=== PATIENT | female | born 1970 | race Caucasian/White ===

== ENCOUNTER → 2019-02-20 | Outpatient (CLI) | payer SELFPAY ==
[2019-02-20 12:29] LABS: Absolute Neutrophil Count 4.7 X10^3/uL (2.0-7.7); Basophil# 0.05 X10^3/uL; Basophil% 0.7 % (0-1); Eosinophil# 0.15 X10^3/uL; Hematocrit 41.4 % (37-47); Hemoglobin 13.5 g/dL (12.0-15.0); Lymphocyte % 25.3 % (19-41); Mean Corp Hgb Conc 32.6 g/dL (32-36); Mean Corpuscular Hgb 27.9 pg (27.0-32.0); Mean Corpuscular Volume 85.5 fL (81-99); Monocyte# 0.63 X10^3/uL; Monocyte% 8.4 % (0-10); NRBC Flagged by Analyzer 0 % (0-5); Neutrophil # 4.74 X10^3/uL (2.7-7.7); Neutrophil % 63.2 % (47-70); Platelet Count 313 K/mm3 (150-450); RBC Distribution Width CV 13.9 % (11.6-14.6); Red Blood Count 4.84 M/mm3 (4.2-5.4); White Blood Count 7.5 K/mm3 (4.4-11.0)
[2019-02-20 13:02] LABS: Hemoglobin A1c 8.3 % (4.2-6.3)
[2019-02-20 13:08] LABS: ALB/GLOB Ratio 0.8 RATIO (0.9-2.4); AST(SGOT) 24 U/L (15-37); Alanine Aminotransfer ALT/SGPT 47 U/L (13-56); Albumin, Serum 3.3 g/dL (3.2-5.0); Alkaline Phosphatase 60 U/L (45-117); Anion Gap 9 (5-15); BUN 6 mg/dL (7-18); BUN/Creat Ratio 8.1 RATIO (10-20); Calcium,Total 8.7 mg/dL (8.5-10.1); Chloride 101 mmol/L (98-107); Cholesterol 178 mg/dL (200); Creatinine, Serum 0.74 mg/dL (0.55-1.02); EST Glomerular Filtration Rate 90 mL/min (>60); Est Glom Filt Rate - Afr Amer 108 mL/min (>60); Globulin 3.9 g/dL (2.2-4.2); Glucose 213 mg/dL (74-106); High Density Lipoprotein 36 mg/dL; Protein, Total 7.2 g/dL (6.4-8.2); Sodium Level 136 mmol/L (136-145); Triglycerides 366 mg/dL; Very Low Density Lipoprotein 73 mg/dL (5-40)
== END | disposition home or self-care (01) ==
LOC: BFHLAB 09:01
PROVIDERS: Family Provider Family Medicine; PCP Family Medicine; Visit Provider Family Medicine
DX: I10 Essential (primary) hypertension (principal); E11.40 Type 2 diabetes mellitus with diabetic neuropathy, unspecified
CPT/HCPCS: 36415; 80053; 80061; 83036; 85025

== ENCOUNTER → 2019-02-27 | Outpatient (CLI) | payer SELFPAY ==
--- NOTE | 2019-02-27 07:05 | CT_ITS ---
STUDY: CT ABDOMEN AND PELVIS WITH CONTRAST REASON FOR EXAM: Female, 48 years old. Right lower quadrant pain RADIATION DOSAGE (If Supplied By Facility): CTDIvol = ( 13.75 ) mGy, DLP = ( 1510.45 ) mGycm TECHNIQUE: Transaxial images were obtained from the dome of the diaphragm to the symphysis pubis without oral contrast. 100mL ml of Isovue 300 contrast was administered. Sagittal and coronal images were reconstructed. Individualized dose optimization techniques were used for this CT. COMPARISON: 12/14/2016 FINDINGS: Body wall soft tissues: No acute process. Osseous structures: Degenerative disease L5-S1 with facet hypertrophy contributes to mild foraminal narrowing. Inferior chest: No acute process. Hepatobiliary: Hepatic steatosis with hepatomegaly, craniocaudal right liver 19.5 cm. Normal gallbladder and biliary tree. Pancreas: No acute process. Spleen: Normal. Adrenal glands: Normal. Urogenital: Normal kidneys, collecting systems, ureters, urinary bladder. Uterus absent. Multiple left ovary. Unremarkable right ovary. Pelvic floor and sidewalls and retroperitoneum: No mass or adenopathy. Vasculature: No acute process. Stomach: No acute process. Small bowel and mesentery: No acute process. Large bowel: Appendicolith. Appendix is not inflamed. Unremarkable large bowel and rectum. Free fluid or free air: None. CT/Abdomen/Pelvis WITH Contrast IMPRESSION: No acute abdominopelvic process is evident. Appendicolith without appendiceal inflammation. Electronically Signed: Jay Rivera MD at 9:47 EDT Tel , Service support ,
== END | disposition home or self-care (01) ==
PROVIDERS: Family Provider Family Medicine; PCP Family Medicine; Referring Provider Family Medicine; Visit Provider Family Medicine
DX: R10.9 Unspecified abdominal pain (principal)
CPT/HCPCS: 74177; Q9967

== ENCOUNTER → 2023-02-22 | Outpatient (CLI) | payer OTHER, SELFPAY ==
--- NOTE | 2023-02-22 17:05 | MRI_ITS ---
EXAM: MR ABDOMEN WITHOUT AND WITH INTRAVENOUS CONTRAST CLINICAL INDICATION: abdominal mass, RT INFRAUMBILICAL RECTUC MUSCLE NODULE, AREA OF PAIN MARKED W/ OIL BEADS TECHNIQUE: Multiplanar and multisequence MR images of the abdomen without and with intravenous contrast. Area of interest marked with oil bead. Magnetic field strength 1.5 T. CONTRAST: 27 cc of Clariscan IV. COMPARISON: CT scan of the abdomen and pelvis 02/27/2019. FINDINGS: LOWER THORAX: Unremarkable. No pleural effusion. LIVER: Limited visualization of the liver, visualized portions normal. GALLBLADDER AND BILE DUCTS: Limited visualization of the gallbladder, visualized portions normal. No gallstones. No gallbladder distention or wall edema. No intra- or extrahepatic biliary ductal dilation. PANCREAS: Limited visualization of the pancreas, visualized portions normal. No focal cystic or solid mass. SPLEEN: Limited visualization of the spleen, visualized portions normal. ADRENALS: Unremarkable. No nodules. KIDNEYS AND URETERS: Unremarkable. Normal renal size and position. No hydronephrosis. INTRAPERITONEAL SPACE: Unremarkable. No ascites or other fluid collection. No free air. SOFT TISSUES: Small fat-containing paraumbilical hernia. VASCULATURE: Unremarkable. Abdominal aorta is non-dilated. LYMPH NODES: No enlarged lymph nodes. OTHER FINDINGS: Hysterectomy. MRI/MRI Abd WITH and W/O Contrast IMPRESSION: 1. No significant abdominal abnormality identified. 2. Hysterectomy. 3. Small fat-containing paraumbilical hernia. No bowel involvement. Electronically Signed: Lew Foster MD at 6:11 EDT ,
[2023-02-22 17:40] LABS: CREATININE FINGERSTICK 0.9 mg/dL (0.55-1.02); EGFR FINGERSTICK > 60.0000 mL/min (>60)
== END | disposition home or self-care (01) ==
PROVIDERS: PCP Family Medicine; Referring Provider Surgery; Visit Provider Surgery
DX: R19.00 Intra-abdominal and pelvic swelling, mass and lump, unspecified site (principal)
CPT/HCPCS: 74183; A9575

== ENCOUNTER 2023-03-12 09:57 | Day surgery (SDC) | payer OTHER, SELFPAY ==
[2023-03-12] VITALS (7 sets, daily range): BP systolic 110–156; BP diastolic 60–91; PULSE 71–78; RESP 16; TEMP 36.3–36.6; O2SAT 94–98; BMI 46.6
--- NOTE | 2023-03-12 | GASB_PTH ---
PATIENT: ERIK SMITH LOC: EN U#:[id number] AGE/SX: 52/F ROOM: RE03/12/[address]: Dr. Lew Abrams MD : 1970 BED: DIS: 03/12/2023 SPEC #: [id number] RECD: 03/12/23 17:10 STATUS: PINKY SHIMA #: [id number] TESFAYE: 03/12/23 00:[address]: Lew Abrmas DEPT: SURGICAL PATHOLOGY RECD BY: Angel Matthews ENTERED: 03/16/23 09:52 SP TYPE: Gastric Bx OTHR DR: Dr. Crow Frazier DO Tissues: A - Duodenum, NOS B - Gastric mucous membrane C - Sigmoid colon biopsy Procedures: Surgery Specimen Level IV HEADER OPERATION: Colonoscopy, EGD, biopsy PRE-OP DIAGNOSIS: Abdominal pain, subcutaneous nodule of abdominal wall, diarrhea, heartburn TISSUE SUBMITTED: A - Duodenal bulb biopsy, B - Antrum biopsy for H. pylori and path, C - Distal sigmoid polyp MICROSCOPIC DIAGNOSIS A. Duodenal bulb, biopsy: Fragments of duodenal mucosa, no pathologic diagnosis. B. Antrum, biopsy: Mild gastritis. See microscopic description and comment. C. Distal sigmoid polyp, biopsy: Consistent with submucosal leiomyoma. See comment. SJ:rg 03/17/2023 COMMENT B. The results of immunohistochemistry for Helicobacter pylori will be reported separately ([id number]). C. Immunohistochemistry ([id number]) supports the above diagnosis. The lesion is present at the deep resection margin of both pieces. Correlation with clinical, endoscopic findings and appropriate follow-up are necessary. Case has been reviewed in consultation with Dr. Wong who concurs with the above diagnosis. IDC:AM MICROSCOPIC DESCRIPTION Slides are reviewed. B. The specimen shows fragments of gastric mucosa with chronic inflammatory cell infiltrates in the lamina propria consisting of lymphocytes and plasma cells, consistent with mild chronic gastritis. GROSS DESCRIPTION A - Received in fixative is one container labeled with the patient's name and designated duodenal bulb biopsy. The specimen consists of multiple irregular fragments of light krueger soft tissue that in aggregate measure 0.6 x 0.3 x 0.1 cm. The specimen is totally submitted in one cassette. B - Received in fixative is one container labeled with the patient's name and designated antrum biopsy. The specimen consists of two irregular fragments of light krueger soft tissue that in aggregate measure 0.3 x 0.3 x 0.1 cm. The specimen is totally submitted in one cassette. C - Received in fixative is one container labeled with the patient's name and designated distal sigmoid polyp. The specimen consists of two krueger-pink polyps measuring 1.2 x 1.2 x 1.0 cm and 1.0 x 0.8 x 0.8 cm. The base of the polyps is inked. Sections of both polyps reveal krueger white solid cut surfaces. Also present in the container are multiple small fragments of krueger soft tissue measuring 0.5 x 0.2 x 0.1 cm. The entire specimen is submitted in two cassettes. / SJ:rg 03/16/2023 TC:1 CPT: 78518 x3
--- NOTE | 2023-03-12 10:30 | IMM_PTH ---
PATIENT: ERIK SMITH LOC: EN U#:[id number] AGE/SX: 52/F ROOM: RE03/12/[address]: Dr. Lew Abrams MD : 1970 BED: DIS: 03/12/2023 SPEC #: [id number] RECD: 03/16/23 12:25 STATUS: PINKY REQ #: [id number] TESFAYE: 03/12/23 10:[address]: Lew Abrams DEPT: IMMUNOHISTOCHEMISTRY RECD BY: Clau Alexandra ENTERED: 03/16/23 12:26 SP TYPE: IMMUNO OTHR DR: Dr. Crow Frazier DO Tissues: B - Stomach, NOS C - Sigmoid colon biopsy Procedures: H Pylori (initial) SMA (add) CD31 (add) CD34 (add) DESMIN (add) KI-67 (add) P53 (add) Vimentin (add) FACTOR VIII (add) Pankeratin (initial) S-100 (add) [facility]YSIC[facility]STIT[facility] [address] [address] SPECIMEN INFORMATION: Tissue Source: B - Antrum, C - Distal sigmoid polyp Clinical Info: Abdominal delarosa, subcutaneous nodule of abdominal wall, diarrhea, heartburn, hiatal hernia Specimen Number: [id number] B & C CPT code: 87255 x2, 07352 x9 METHODOLOGY: Deparaffinized sections of prefer/formalin-fixed tissue or PAP/DQ stained slides are incubated with monoclonal/polyclonal antibodies/oligonucleotide probes. Localization is made via biotin free immunoperoxidase method. Appropriate controls are performed and reacted as expected. Results on target cell population are indicated in the following table: RESULTS: ANTIBODY / CLONE RESULT Block B H Pylori (polyclonal) negative Block C AE1-3 (AE1/AE3/PCK26) negative Vimentin (V9) positive CD31 (JOELLE/70A) negative Factor VIII (R Ag) negative CD34 (QBEnd-10) negative Actin (1A4) positive Desmin (CE-R-11) positive S-100 (4C4.9) negative P53 (DO-7) negative (null pattern) Ki-67 (30-9) positive, low, <1% These tests were developed and their performance characteristics determined by [facility]. They may not have been cleared or approved by the U.S. Food and Drug Administration. The FDA has determined that such clearance or approval is not necessary. The above immunohistochemical/dualISH markers are ordered and reviewed by the Pathologist. INTERPRETATION: B. Antrum, biopsy: Negative for Helicobacter pylori organisms. C. Distal sigmoid polyp, biopsy: Consistent with submucosal leiomyoma. SJ:cristina 03/18/2023
[2023-03-12] MEDS: Lactated Ringers 1,000 ML 15 ML IV (10:53)
[2023-03-12 11:14] LABS: Bedside Glucose 191 mg/dL (74-106)
--- NOTE | 2023-03-12 11:54 | HP.PCM_ITS ---
History and Physical Date of Admission: 03/12/23 Date of Service: 02/05/23 MR#: [id number] Acct: [id number] Name: ERIK LANGE Rep #: [id number] : 1970 Provider: Dr. Lew Abrams MD Age/Sex: 52/F Location: [facility] Status: Signed Intake Vital Signs 02/05/2309:51 Height 5 ft 5.5 in Weight: 297 lb BMI 48.6 BP 126/87 H Blood Pressure Location Rt brachial Position Sitting Respiration 17 Pulse 97 Pulse Source NIBP Temp 97.2 F L Temp Source Temporal Pulse Oximetry (%) 96 Oxygen Delivery Method room air Intake Visit Reasons: 2nd opinion abdominal pain Chief Complaint: right mid abd pain Stack Attendant Required: No Is patient in pain?: Yes Allergies No Known Allergies Allergy (Verified 02/05/23 09:52) Medications citalopram 20 mg tablet PO #90 tabs 04/07/19 [History Confirmed 02/05/23] lisinopril 10 mg-hydrochlorothiazide 12.5 mg tablet PO #90 tabs 04/07/19 [History Confirmed 02/05/23] multivitamin 1 tab PO DAILY 04/07/19 [History Confirmed 02/05/23] metformin 500 mg tablet,extended release 24 hr 500 mg PO .qid #360 tabs 02/05/23 [History Confirmed 02/05/23] Is last menstrual period known: No Post menopausal: Yes Patient : No PFSH Medical History (Updated 02/05/23 @ 15:[address] Lew Abrams MD) Abdominal pain Anxiety and depression Diabetes HTN (hypertension) Surgical History (Updated 04/07/19 @ 09:07 by Verena Iverson) History of abdominal hysterectomy History of section History of tonsillectomy Family History (Updated 04/07/19 @ 09:07 by Verena Iverson) Mother Heart disease Social History (Updated 04/13/19 @ 14:[address] Guido Bueno MD) Smoking Status: Never smoker HPI HPI HPI: Patient is a 52-year-old female who presents for second opinion due to complaints of abdominal pain which she states began around 2008 shortly after a partial vaginal hysterectomy by Dr. Pinedo. Symptoms include: A pulling and burning sensation when she moves about she declares that there is no relief with ngbi-rtp-cwjdezm analgesics such as Tylenol or ibuprofen. She also declares there is no relief when she tries to change positions from sitting to standing or sitting to lying down. She describes this sensation as beginning on or about the level of her pubic bone and moving upward to the right of her bellybutton. She was seen in [address] Bueno for this issue and he described a possible granuloma in the right rectus muscle, but informed Mrs. Lange that any intervention would be associated with more morbidity than the relief she could expect so if she was informed she may have to simply live with her discomfort. Beyond the above, patient comments that she has always had some periods of diarrhea and loose stools, but in the last 7 to 8 years has noticed much more frequently that she is experiencing liquid or runny stools. She also notes that when she feels the urge to defecate she must go immediately. She has never had a colonoscopy because she states she was never told she should have one. She has never noticed any bleeding or dark stools and reports the frequency of her stools occur sometimes 4-7 times in a day. She has no regular use of ibuprofen. She does not regularly use fiber supplements. She has no prior history of smoking. Patient confirms a history of both reflux and heartburn, but states that heartburn is her primary issue. She notes triggers being things like peanut butter, chocolate, drinking lots of caffeine (she states that she previously as a younger adult could drink 1-2 pops without issue, but finds this difficult after a couple of cups). These heartburn symptoms occur at a frequency of up to 2 times per week. She notes that she was told as a young lady that she has a hiatal hernia, but no intervention was ever undertaken?including EGD to further evaluate. She is not routinely on PPI medication, but states that she will take Tums or Pepcid as needed with her episodes of heartburn. She reports that her weight has been up and down most of her life. She states that she can lose some weight with great discipline, but then find herself becoming depressed and regaining the weight due to indiscriminate eating. She states that her current weight of 297 pounds is actually down from her recent high of 320 pounds. Patient is a diabetic and uses metformin to control her blood sugars. She states that her A1c typically ranges 6-8. She is diagnosed with hypertension, but does not routinely check her blood pressures. Pertinent surgical history includes: [History] ROS General General: Yes weight change; No appetite, fatigue, colon cancer, breast cancer or weakness HEENT HEENT: No difficulty swallowing, eye injury, eye surgery, swollen glands or hoarseness Endo Endocrine: Yes diabetes mellitus; No thyroid disease, thyroid cancer, Hair loss, heat intolerance or cold intolerance Breast Breast: No left breast lump, right breast lump, nipple discharge, breast pain, abnormal mammogram, abnormal US or breast enlargement Musc Musculoskeletal: No back problems, arthritis, rheumatoid arthritis, gout or joint pain Cardio Cardiovascular: Yes high blood pressure; No murmur, pacemaker, heart disease, atrial fibrillation, heart attack, heart stent, palpitations, shortness of breat with exertion or chest pain Psych Psychiatric: Yes depression and anxiety; No hearing voices Resp Respiratory: Yes shortness of breath, No sleep apnea, No cough, No COPD, No asthma, No emphysema and No wheezing Gastro Gastrointestinal: Yes abdominal pain, No nausea or vomiting, No diarrhea, No constipation, No blood in stool, No acid reflux, No hemorrhoids, No ulcers, Yes gallbladder problem and No black,tarry stools Jani Hematologic: No blood thinners, No blood disorders, No bleeding, No anemia and No blood clots Neuro Neurologic: No weakness Exam Const General: cooperative, comfortable and no acute distress Nutritional Appearance: obese morbidly obese Orientation: alert, awake and oriented x3 GI Other: Gynecoid shape with significant obesity. No scars are present but there are striae. Patient's abdomen is examined and she is found to be nondistended and soft with palpation. She describes some mild tenderness about her umbilicus to the right and inferiorly. Given her habitus I am unable to palpate to the level of her fascia. Assessment and Plan Assessment and Plan (1) Abdominal pain: Status: Chronic Comment: Patient describes a 14-year history of abdominal discomfort beginning 6 to 8 months after partial hysterectomy in 2008. By her description this is a musculoskeletal etiology given that it is most prominently felt through the abdominal wall and provoked by activity. An exam is limited given patient's habitus, but she does have discomfort at the level of the umbilicus and just below to the right of this area. In my independent review of patient's CT imaging from 2019 identify a 1.5 to 1.7 cm umbilical hernia defect and just inferior laterally to this defect on the right there is a distortion of the rectus muscle that appears to contain some calcifications. Given that the patient's imaging is now 4 years out of date and her exam limited, I favor repeating her imaging. I have conferenced with radiology and we will plan to perform an MR study this time to get better definition of the soft tissue. Patient requires further evaluation of her GI symptoms as well. See below (2) Subcutaneous nodule of abdominal wall: Status: Acute Comment: Patient with right infraumbilical rectus muscle nodule. There appears to be calcifications. Imaging reviewed with radiology and they agree further imaging with an MR study may be more conclusive. I have shared with Mrs. Lange that any attempts at excision of this mass would put her at significant risk for additional hernia recurrence and that her habitus certainly limits the intervention that can be considered electively. Plan: MRI of the abdomen with contrast (3) Diarrhea: Status: Acute Comment: Patient with frequent episodes of diarrhea for the past several years. No prior colonoscopy despite age greater than 50. With her reports of abdominal discomfort and the symptoms, I would like to be sure that they are not in any way connected. I would also like to evaluate her for possible microscopic colitis or other malabsorption. As far as the malabsorption testing goes, patient did report some yellow stools so I would like to submit a stool sample for fecal fat testing. Otherwise she was made aware of the expectations for a colonoscopy and informed that she should complete a split prep and plan to have a dedicated intermodal truck driver the day of the procedure. Plan: ? Plan will be to complete colonoscopy on first mutually agreeable date under local MAC. Pre-procedure prep discussed and paper instructions provided. Patient is also made aware that she will need to have a dedicated intermodal truck driver with her the day of the procedure. ? Fecal fat testing (4) Heartburn symptom: Status: Acute Comment: Patient describes heartburn symptoms 2 times per week and reports a history of a hiatal hernia. Given that diagnostic colonoscopy is planned for frequent diarrhea, I would like to do a concurrent EGD study to better evaluate her hiatal hernia. Ultimately, given her current BMI I did discuss with her a possible bariatrics referral. Mrs. Lange was rather receptive to this suggestion and I have asked her to specifically consider evaluation for possible gastric bypass as I would see her as a poor operative candidate for antireflux surgery through fundoplication. Plan: Diagnostic EGD concurrent with colonoscopy (5) Hiatal hernia: Status: Acute Plan: Evaluate with diagnostic EGD as discussed under heartburn above I have examined the patient and the H&P has been reviewed. There are no clinical changes since date of exam. I reviewed with patient that her MRI was unfortunately nondiagnostic for the abdominal wall lesion we were interested in. I informed her to that radiology is recommending repeat CT imaging. We will follow-up on this issue independently. Patient confirms that she did complete her prep for today's procedure and that her output is now clear. Neither she nor her have any questions related today's procedure. Therefore we proceeded endoscopy suite for planned upper and lower endoscopy as discussed above.
--- NOTE | 2023-03-12 13:11 | OP.EGD_ITS ---
Patient Name: Carlos Lange Procedure Date: 03/12/2023 11:48 AM Date of : 1970 Age: 52 Procedure: Upper GI endoscopy Indications: Gastro-esophageal reflux disease Providers: Lew Abrams MD Referring MD: Crow Frazier Medicines: See the Anesthesia note for documentation of the administered medications Patient Profile: Refer to note in patient chart for documentation of history and physical. Complications: No immediate complications. Estimated blood loss: Minimal. Procedure: Pre-Anesthesia Assessment: - The heart rate, respiratory rate, oxygen saturations, blood pressure, adequacy of pulmonary ventilation, and response to care were monitored throughout the procedure. After obtaining informed consent, the endoscope was passed under direct vision. Throughout the procedure, the patient's blood pressure, pulse, and oxygen saturations were monitored continuously. The gastroscope was introduced through the mouth, and advanced to the second part of duodenum. The upper GI endoscopy was accomplished without difficulty. The patient tolerated the procedure well. Scope In: 12:06:56 PM Scope Out: 12:16:29 PM Total Procedure Duration Time 0 hours 9 minutes 33 seconds Findings: No gross lesions were noted in the second portion of the duodenum. No biopsies or other specimens were collected for this exam. A few 2 mm semi-sessile polyps with no bleeding were found in the duodenal bulb. Biopsies were taken with a cold forceps for histology. Estimated blood loss was minimal. Localized moderately erythematous mucosa without bleeding was found in the gastric antrum. Biopsies were taken with a cold forceps for Helicobacter pylori testing. Estimated blood loss was minimal. The Z-line was regular and was found 39 cm from the incisors. No biopsies or other specimens were collected for this exam. The exam was otherwise without abnormality. Impression: - No gross lesions in the second portion of the duodenum. No specimens collected. - A few duodenal polyps. Biopsied. - Erythematous mucosa in the antrum. Biopsied. - Z-line regular, 39 cm from the incisors. No specimens collected. - The examination was otherwise normal. Recommendation: - Discharge patient to home (via wheelchair). - Resume previous diet today. - Use Protonix (pantoprazole) 40 mg PO daily today. - Await pathology results. - Telephone my office for pathology results in 1 week. - Continue present medications. Procedure Code(s): --- Professional --- 89338, Esophagogastroduodenoscopy, flexible, transoral; with biopsy, single or multiple Diagnosis Code(s): --- Professional --- K31.7, Polyp of stomach and duodenum K31.89, Other diseases of stomach and duodenum K21.9, Gastro-esophageal reflux disease without esophagitis CPT copyright 2021 [employer]. All rights reserved. The codes documented in this report are preliminary and upon export clerk review may be revised to meet current compliance requirements. Lew Abrams MD 03/12/2023 1:11:18 PM This report has been signed electronically. Number of Addenda: 0 Note Initiated On: 03/12/2023 11:48 AM
--- NOTE | 2023-03-12 13:12 | OP.CCLET_ITS ---
03/12/2023 Crow Frazier [address] [place] [address] Re : Upper GI endoscopy procedure for Carlos Lange Dear Dr. Frazier This procedure was performed on Sunday, March 12, 2023. My impressions and recommendations are as follows: Impressions : - No gross lesions in the second portion of the duodenum. No specimens collected. - A few duodenal polyps. Biopsied. - Erythematous mucosa in the antrum. Biopsied. - Z-line regular, 39 cm from the incisors. No specimens collected. - The examination was otherwise normal. Recommendations : - Discharge patient to home (via wheelchair). - Resume previous diet today. - Use Protonix (pantoprazole) 40 mg PO daily today. - Await pathology results. - Telephone my office for pathology results in 1 week. - Continue present medications. My findings are described in the full procedure note, which is enclosed. If I can be of further assistance, please feel free to contact me at Doctor phone number(s): , Work: . Sincerely, Lew Abrams MD 03/12/2023 1:11:18 PM This report has been signed electronically.
--- NOTE | 2023-03-12 13:17 | OP.COLON_ITS ---
Patient Name: Carlos Lange Procedure Date: 03/12/2023 12:22 PM Date of : 1970 Age: 52 Procedure: Colonoscopy Indications: This is the patient's first colonoscopy, Chronic diarrhea Providers: Lew Abrams MD Referring MD: Crow Frazier Medicines: See the Anesthesia note for documentation of the administered medications Patient Profile: Refer to note in patient chart for documentation of history and physical. Last Colonoscopy: none. The patient's first colonoscopy is today. Complications: No immediate complications. Estimated blood loss: Minimal. Procedure: Pre-Anesthesia Assessment: - The heart rate, respiratory rate, oxygen saturations, blood pressure, adequacy of pulmonary ventilation, and response to care were monitored throughout the procedure. - The heart rate, respiratory rate, oxygen saturations, blood pressure, adequacy of pulmonary ventilation, and response to care were monitored throughout the procedure. After I obtained informed consent, the scope was passed under direct vision. Throughout the procedure, the patient's blood pressure, pulse, and oxygen saturations were monitored continuously. The colonoscope was introduced through the anus and advanced to the cecum, identified by the ileocecal valve. The colonoscopy was somewhat difficult due to a tortuous colon. Successful completion of the procedure was aided by changing the patient to a supine position. The patient tolerated the procedure well. The quality of the bowel preparation was adequate to identify polyps. Scope In: 12:22:47 PM Scope Withdrawal Time 0 hours 26 minutes 34 seconds Scope Out: 1:04:10 PM Total Procedure Duration Time 0 hours 41 minutes 23 seconds Findings: A few small-mouthed diverticula were found in the sigmoid colon. No biopsies or other specimens were collected for this exam. A 25 mm polyp was found in the distal sigmoid colon. The polyp was pedunculated. The polyp was removed with a hot snare. Resection and retrieval were complete. Estimated blood loss: none. The exam was otherwise without abnormality on direct and retroflexion views. The mucosa vascular pattern in the rectum was locally increased. No biopsies or other specimens were collected for this exam. Impression: - Diverticulosis in the sigmoid colon. No specimens collected. - One 25 mm polyp in the distal sigmoid colon, removed with a hot snare. Resected and retrieved. - The examination was otherwise normal on direct and retroflexion views. - Increased mucosa vascular pattern in the rectum. No specimens collected. Recommendation: - Discharge patient to home (via wheelchair). - Resume previous diet today. - Continue present medications. - Await pathology results. - Repeat colonoscopy date to be determined after pending pathology results are reviewed for surveillance based on pathology results. - Telephone my office for pathology results in 1 week. Procedure Code(s): --- Professional --- 01406, Colonoscopy, flexible; with removal of tumor(s), polyp(s), or other lesion(s) by snare technique Diagnosis Code(s): --- Professional --- D12.5, Benign neoplasm of sigmoid colon K52.9, Noninfective gastroenteritis and colitis, unspecified K57.30, Diverticulosis of large intestine without perforation or abscess without bleeding CPT copyright 2021 [employer]. All rights reserved. The codes documented in this report are preliminary and upon medical records coder review may be revised to meet current compliance requirements. Lew Abrams MD 03/12/2023 1:17:13 PM This report has been signed electronically. Number of Addenda: 0 Note Initiated On: 03/12/2023 12:22 PM
--- NOTE | 2023-03-12 13:17 | OP.CCLET_ITS ---
03/12/2023 Crow Frazier [address] [place] [address] Re : Colonoscopy procedure for Carlos Lange Dear Dr. Frazier This procedure was performed on Sunday, March 12, 2023. My impressions and recommendations are as follows: Impressions : - Diverticulosis in the sigmoid colon. No specimens collected. - One 25 mm polyp in the distal sigmoid colon, removed with a hot snare. Resected and retrieved. - The examination was otherwise normal on direct and retroflexion views. - Increased mucosa vascular pattern in the rectum. No specimens collected. Recommendations : - Discharge patient to home (via wheelchair). - Resume previous diet today. - Continue present medications. - Await pathology results. - Repeat colonoscopy date to be determined after pending pathology results are reviewed for surveillance based on pathology results. - Telephone my office for pathology results in 1 week. My findings are described in the full procedure note, which is enclosed. If I can be of further assistance, please feel free to contact me at Doctor phone number(s): , Work: . Sincerely, Lew Abrams MD 03/12/2023 1:17:13 PM This report has been signed electronically.
[2023-03-15 18:07] LABS: Fats, Neutral Normal (.); Fats, Total Normal (.)
== END 2023-03-12 14:28 | disposition home or self-care (01) ==
LOC: EN 10:05 → AC 10:05
PROVIDERS: PCP Family Medicine; Referring Provider Family Medicine; Visit Provider Surgery
PROC: 0DJD8ZZ Inspection of Lower Intestinal Tract, Via Natural or Artificial Opening Endoscopic (ICD-10-PCS; CPT 45378; principal; 2023-03-12 10:25)
DX: K52.9 Noninfective gastroenteritis and colitis, unspecified (principal); E11.9 Type 2 diabetes mellitus without complications; Z87.891 Personal history of nicotine dependence; K42.9 Umbilical hernia without obstruction or gangrene; K57.30 Diverticulosis of large intestine without perforation or abscess without bleeding; K44.9 Diaphragmatic hernia without obstruction or gangrene; I10 Essential (primary) hypertension; F32.A Depression, unspecified; K31.7 Polyp of stomach and duodenum; Z79.84 Long term (current) use of oral hypoglycemic drugs; D12.5 Benign neoplasm of sigmoid colon; K31.89 Other diseases of stomach and duodenum; K21.9 Gastro-esophageal reflux disease without esophagitis
CPT/HCPCS: 45385; 43239; 82705; 82962; 88305; 88341; 88342; J7120; J2405

== ENCOUNTER → 2023-04-06 | Outpatient (CLI) | payer OTHER, SELFPAY ==
--- NOTE | 2023-04-06 07:37 | CT_ITS ---
STUDY: CT ABDOMEN AND PELVIS WITH CONTRAST REASON FOR EXAM: Female, 52 years old.ABDOMINAL WALL LESION MID ABD PAIN/PULLING, ? HERNIA YEARS AGO, HYSTER, , DB RADIATION DOSAGE (If Supplied By Facility): CTDIvol = ( 18.87 ) mGy, DLP = ( 1433.11 ) mGycm TECHNIQUE: Transaxial images were obtained from the dome of the diaphragm to the symphysis pubis without oral contrast. ml of 100mL Isovue-300 contrast was administered. Sagittal and coronal images were reconstructed. Individualized dose optimization techniques were used for this CT. COMPARISON: CT of abdomen and pelvis dated February 27, 2019 FINDINGS: The visualized lung bases are unremarkable. The visualized portions of the heart are within normal limits. There is decreased attenuation of the liver consistent with steatosis. The gallbladder is contracted. Normal spleen. Pancreas: Small simple cyst at the undersurface of the head of the pancreas redemonstrated and demonstrating slight interval enlargement, currently measuring 2.15 cm in diameter compared to 2.03 cm in diameter on February 27, 2019 study. No malignant process is favored. Normal remaining pancreatic parenchyma of the uncinate process, head, body, and tail. Normal bilateral adrenal glands. There is mild cortical atrophy of the right kidney, consistent with chronic medical renal disease. Several small cysts of the right kidney redemonstrated which does not requiring additional imaging. Normal left kidney. Normal visualized stomach. Normal small intestine. There are multiple colonic diverticula consistent with diverticulosis. The appendix is visualized and appears normal. Normal abdominal aorta. Normal inferior vena cava. Normal retroperitoneum. Normal urinary bladder. There is absence of the uterus consistent with a prior hysterectomy. Normal ovaries. There is a small umbilical hernia containing fat. Redemonstration of old fibrotic scarring and calcification in the inner aspect and middle one third region of the right rectus abdominis muscle with adjacent focal fatty atrophy, see image 86/135 series 2, consistent with sequela of prior surgical intervention to this region. No ventral hernia is present on the current study. There are diffuse degenerative changes of the visualized lumbar spine. CT/Abdomen/Pelvis WITH Contrast IMPRESSION: 1. Small simple cyst at the undersurface of the head of the pancreas redemonstrated and demonstrating slight interval enlargement, currently measuring 2.15 cm in diameter compared to 2.03 cm in diameter on February 27, 2019 study. No malignant process is favored. Normal remaining pancreatic parenchyma of the uncinate process, head, body, and tail. 2. There is a small umbilical hernia containing fat. Redemonstration of old fibrotic scarring and calcification in the inner aspect and middle one third region of the right rectus abdominis muscle with adjacent focal fatty atrophy, see image 86/135 series 2, consistent with sequela of prior surgical intervention to this region. No ventral hernia is present on the current study. Electronically Signed: Mandeep Morgan MD at 8:58 EDT ,
[2023-04-06 08:15] LABS: CREATININE FINGERSTICK < 0.9 mg/dL (0.55-1.02); EGFR FINGERSTICK > 60.0000 mL/min (>60)
== END | disposition home or self-care (01) ==
LOC: CT 07:36
PROVIDERS: PCP Family Medicine; Referring Provider Surgery; Visit Provider Surgery
DX: K44.9 Diaphragmatic hernia without obstruction or gangrene (principal)
CPT/HCPCS: 74177; Q9967

== ENCOUNTER 2023-04-28 10:21 | Day surgery (SDC) | payer OTHER, SELFPAY ==
[2023-04-28 10:51] VITALS: BP 134/66; PULSE 77; RESP 18; TEMP 36.3; O2SAT 97; BMI 47.3
[2023-04-28] MEDS: Lactated Ringers 1,000 ML 15 ML IV (10:55)
--- NOTE | 2023-04-28 11:14 | HP.PCM_ITS ---
[facility] - General General Date of Admission: 04/28/23 Date of Service: 04/28/23 Chief Complaint: Incompletely removed polyp HPI Narrative ERIK LANGE, is a 52 F who presents for repeat colonoscopy. 52-year-old female who presents for second opinion due to complaints of abdominal pain which she states began around 2008 shortly after a partial vaginal hysterectomy by Dr. Pinedo. Symptoms include: A pulling and burning sensation when she moves about she declares that there is no relief with mzka-qup-kzgljkw analgesics such as Tylenol or ibuprofen. She also declares there is no relief when she tries to change positions from sitting to standing or sitting to lying down. She describes this sensation as beginning on or about the level of her pubic bone and moving upward to the right of her bellybutton. She was seen in [address] Bueno for this issue and he described a possible granuloma in the right rectus muscle, but informed Mrs. Lange that any intervention would be associated with more morbidity than the relief she could expect so if she was informed she may have to simply live with her discomfort. Beyond the above, patient comments that she has always had some periods of diarrhea and loose stools, but in the last 7 to 8 years has noticed much more frequently that she is experiencing liquid or runny stools. She also notes that when she feels the urge to defecate she must go immediately. She has never had a colonoscopy because she states she was never told she should have one. She has never noticed any bleeding or dark stools and reports the frequency of her stools occur sometimes 4-7 times in a day. She has no regular use of ibuprofen. She does not regularly use fiber supplements. She has no prior history of smoking. Patient confirms a history of both reflux and heartburn, but states that hear tburn is her primary issue. She notes triggers being things like peanut butter, chocolate, drinking lots of caffeine (she states that she previously as a younger adult could drink 1-2 pops without issue, but finds this difficult after a couple of cups). These heartburn symptoms occur at a frequency of up to 2 times per week. She notes that she was told as a young lady that she has a hiatal hernia, but no intervention was ever undertaken?including EGD to further evaluate. She is not routinely on PPI medication, but states that she will take Tums or Pepcid as needed with her episodes of heartburn. She underwent colonoscopy by Dr. Lew Abrams. There is a 25 mm polyp that was removed. 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 It was not completely removed so she comes in today for complete removal of the rest of that submucosal lesion. [facility] Medical History (Updated 04/28/23 @ 11:[address] Mattson Friend, DO) Abdominal pain Anemia Anxiety and depression Back pain Diabetes Dietary restriction Easy bruising Fatty liver Gastric reflux Heat stroke History of edema History of hiatal hernia History of pain when walking HTN (hypertension) Leg cramps Migraine headache Non-smoker Restless legs Shortness of breath on exertion Wears dentures Wears glasses Home Medications citalopram 20 mg tablet 20 mg PO DAILY #90 tabs 04/07/19 [History Last Taken Unknown] lisinopril 10 mg-hydrochlorothiazide 12.5 mg tablet 1 tab PO DAILY #90 tabs 04/07/19 [History Last Taken Unknown] multivitamin 1 tab PO DAILY 04/07/19 [History Last Taken Unknown] metformin 500 mg tablet,extended release 24 hr 1,000 mg PO BID #360 tabs 02/05/23 [History Last Taken Unknown] Allergy/AdvReac Type Severity Reaction Status Date / Time No Known Allergies Allergy Verified 04/28/23 10:49 Family History (Updated 04/07/19 @ 09:07 by Verena Iverson) Mother Heart disease Surgical History (Updated 04/21/23 @ 12:13 by Oksana Lutz) History of abdominal hysterectomy History of section History of tonsillectomy Hx of colonoscopy Social History (Updated 04/13/19 @ 14:[address] Guido Bueno MD) Smoking Status: Never smoker ROS Review of Systems ROS Unobtainable: other Constitutional Constitutional: Denies fatigue, fever(s), poor appetite, weight gain or weight loss ENT HEENT: Denies mouth lesions Cardiovascular Cardiovascular: Denies abdominal bloating, abdominal edema or abdominal pain Respiratory/Chest Respiratory/Chest: Denies change in mental status, change in phlegm color, chest congestion or chest tightness Gastrointestinal Gastrointestinal: Denies belching, bloating, change in bowel habits, change in stool character, chewing difficulty, coffee ground emesis, constipation, cramping, diarrhea, dyspepsia, dysphagia, early satiety, excessive flatus, fecal incontinence, heartburn, hematemesis, hematochezia, hemorrhoids, loose stools, melena, nausea, odynophagia, rectal bleeding, tenesmus, vomiting or weight changes Genitourinary Genitourinary: Denies abdominal discomfort, burning urination or itching Musculoskeletal Musculoskeletal: Reports as per HPI; Denies muscle weakness or myalgias Integumentary Integumentary: Denies jaundice Neurologic Neurologic: Denies lack of coordination or weakness Psychiatric Psychiatric: Denies confusion, depression, memory loss, mood swings, paranoia or suicidal ideation Endocrine Endocrinology: Denies systems reviewed and no addt'l complaints, except as documented Hematologic/Lymphatic Hematologic/Lymphatic: Denies anemia, easy bleeding, easy bruising or lymphadenopathy Allergic/Immunologic Allergic/Immunologic: Denies systems reviewed and no addt'l complaints, except as documented Vital Signs Vital Signs Vital Signs: 04/28/23 10:51 04/28/23 10:51 Temperature 97.4 F L Temperature Source Temporal Pulse Rate 77 Respiratory Rate 18 Respiratory Pattern Normal Blood Pressure 134/66 H Blood Pressure Mean 88 Blood Pressure Source Monitor Blood Pressure Position Semi-Fowlers Blood Pressure Location Right Arm Pulse Ox 97 Oxygen Delivery Method Room Air Weight Weight: 284 lb 6.341 oz Body Mass Index (BMI) 47.3 Physical Exam Const alert General Appearance: cooperative Orientation / Consciousness: oriented to person HEENT hearing grossly normal bilaterally Head and Scalp: normal to inspection Face and Sinus: face symmetric Nose: external nose normal Mouth: oral and palatal mucosa normal Eyes conjunctivae normal General Eye: normal appearance of both eyes Neck full ROM General: normal visual inspection Lymph Lymphatic: no lymphadenopathy noted Chest inspection of chest normal and palpation of chest normal Chest: symmetrical chest wall rise Resp normal respiratory effort Effort and Inspection: able to speak in complete sentences Cardio regular rate GI non-distended Percussion: normal to percussion Rectal Exam: deferred Neuro Speech: speech normal Gait (Neuro): normal gait Assessment & Plan Assessment/Plan (1) Personal history of colonic polyps: PLAN: She was explained alternatives, risk, benefits include not withstanding bleeding, infection, sepsis, perforation, need for emergent surgery . She will have an ASA of 2.
--- NOTE | 2023-04-28 11:30 | COLBX_PTH ---
PATIENT: ERIK SMITH LOC: EN U#:[id number] AGE/SX: 52/F ROOM: RE04/28/[address]: Dr. Srinivasan Ludwig DO : 1970 BED: DIS: 04/28/2023 SPEC #: [id number] RECD: 04/28/23 13:53 STATUS: PINKY RELexis #: [id number] TESFAYE: 04/28/23 11:[address]: Srinivasan Ludwig DEPT: SURGICAL PATHOLOGY RECD BY: Aster Boyer ENTERED: 04/29/23 09:43 SP TYPE: COLON BX OTHR DR: Dr. Crow Frazier, Tissues: Rectum, NOS Procedures: Surgery Specimen Level IV HEADER OPERATION: Colonoscopy with polypectomy and epinephrine lift PRE-OP DIAGNOSIS: Personal history of colon polyps TISSUE SUBMITTED: Rectosigmoid polyp MICROSCOPIC DIAGNOSIS Rectosigmoid polyp, polypectomy: Favor submucosal leiomyoma. See comment. SJ:cristina 04/30/2023 COMMENT The mucosa also shows focal Hyperplastic changes. Correlation with clinical, endoscopic findings and appropriate follow up are necessary. MICROSCOPIC DESCRIPTION Slides are reviewed. GROSS DESCRIPTION Received in fixative is one container labeled with the patient's name and designated rectosigmoid polyp. The specimen consists of one irregular fragment of light kruegre soft tissue that measures 0.7 x 0.5 x 0.2 cm. The specimen is totally submitted in one cassette. / AM:cristina 04/29/2023 TC:1 CPT: 59758
[2023-04-28] MEDS: 0.9% Normal Saline (Pres. free 10 ML Vial (11:35)
[2023-04-28] MEDS: Epinephrine (1 mg/ml) 1 MG/ML VIAL (11:35)
--- NOTE | 2023-04-28 11:46 | OP.COLON_ITS ---
Patient Name: Carlos Lange Procedure Date: 04/28/2023 11:11 AM Date of : 1970 Age: 52 Procedure: Colonoscopy Indications: High risk colon cancer surveillance: Personal history of colonic polyps, Last colonoscopy: March 2023 Providers: Srinivasan Ludwig DO Medicines: Monitored Anesthesia Care Patient Profile: This is a 52 year old female. Refer to note in patient chart for documentation of history and physical. Last Colonoscopy: within the past 3 months. Complications: No immediate complications. Procedure: Pre-Anesthesia Assessment: - Prior to the procedure, a History and Physical was performed, and patient medications and allergies were reviewed. The patient is competent. The risks and benefits of the procedure and the sedation options and risks were discussed with the patient. All questions were answered and informed consent was obtained. Patient identification and proposed procedure were verified by the physician in the pre-procedure area. Mental Status Examination: alert and oriented. Airway Examination: normal oropharyngeal airway and neck mobility. Respiratory Examination: clear to auscultation. CV Examination: normal. Prophylactic Antibiotics: The patient does not require prophylactic antibiotics. Prior Anticoagulants: The patient has taken no anticoagulant or antiplatelet agents. ASA Grade Assessment: II - A patient with mild systemic disease. After reviewing the risks and benefits, the patient was deemed in satisfactory condition to undergo the procedure. The anesthesia plan was to use monitored anesthesia care (MAC). Immediately prior to administration of medications, the patient was re-assessed for adequacy to receive sedatives. The heart rate, respiratory rate, oxygen saturations, blood pressure, adequacy of pulmonary ventilation, and response to care were monitored throughout the procedure. The physical status of the patient was re-assessed after the procedure. After I obtained informed consent, the scope was passed under direct vision. Throughout the procedure, the patient's blood pressure, pulse, and oxygen saturations were monitored continuously. The Colonoscope was introduced through the anus and advanced to the cecum, identified by appendiceal orifice and ileocecal valve. The colonoscopy was performed without difficulty. The patient tolerated the procedure well. The quality of the bowel preparation was adequate. The ileocecal valve, appendiceal orifice, and rectum were photographed. Scope In: 11:22:05 AM Scope Withdrawal Time 0 hours 14 minutes 46 seconds Scope Out: 11:40:10 AM Total Procedure Duration Time 0 hours 18 minutes 5 seconds Findings: The perianal and digital rectal examinations were normal. A 13 mm polyp was found in the recto-sigmoid colon. The polyp was sessile. The polyp was removed with a saline injection-lift technique using a cold snare. Resection and retrieval were complete. Area was successfully injected with 2 mL of a 0.1 mg/mL solution of epinephrine for a lift polypectomy. Estimated blood loss was minimal. A few small-mouthed diverticula were found in the recto-sigmoid colon and sigmoid colon. Impression: - One 13 mm polyp at the recto-sigmoid colon, removed using injection-lift and a cold snare. Resected and retrieved. Injected. - Diverticulosis in the recto-sigmoid colon and in the sigmoid colon. Recommendation: - Discharge patient to home. - Resume previous diet. - Continue present medications. - Await pathology results. - Repeat colonoscopy in 3 years for surveillance. Procedure Code(s): --- Professional --- 84833, Colonoscopy, flexible; with removal of tumor(s), polyp(s), or other lesion(s) by snare technique 14610, Colonoscopy, flexible; with directed submucosal injection(s), any substance CPT copyright 2021 [employer]. All rights reserved. The codes documented in this report are preliminary and upon insurance coder review may be revised to meet current compliance requirements. Srinivasan Ludwig DO 04/28/2023 11:45:50 AM This report has been signed electronically. Number of Addenda: 0 Note Initiated On: 04/28/2023 11:11 AM
--- NOTE | 2023-04-28 11:46 | OP.CCLET_ITS ---
04/28/2023 Crow Frazier [address] [facility] [place] [address] Re : Colonoscopy procedure for Lyndonzoila Lange Dear Dr. Frazier This procedure was performed on Friday, April 28, 2023. My impressions and recommendations are as follows: Impressions : - One 13 mm polyp at the recto-sigmoid colon, removed using injection-lift and a cold snare. Resected and retrieved. Injected. - Diverticulosis in the recto-sigmoid colon and in the sigmoid colon. Recommendations : - Discharge patient to home. - Resume previous diet. - Continue present medications. - Await pathology results. - Repeat colonoscopy in 3 years for surveillance. My findings are described in the full procedure note, which is enclosed. If I can be of further assistance, please feel free to contact me at . Sincerely, Srinivasan Ludwig, 04/28/2023 11:45:50 AM This report has been signed electronically.
[2023-04-28 11:50] VITALS: BP 132/75; BP 134/66; PULSE 83; RESP 16; TEMP 36.6; O2SAT 97
[2023-04-28 11:54] VITALS: BP 126/81; BP 134/66; PULSE 75; RESP 18; O2SAT 99
[2023-04-28 12:00] VITALS: BP 134/66; BP 134/89; PULSE 69; RESP 18; O2SAT 99
[2023-04-28 12:01] LABS: Bedside Glucose 197 mg/dL (74-106)
[2023-04-28 12:08] VITALS: BP 134/66; BP 134/78; PULSE 75; RESP 18; TEMP 36.3; O2SAT 100
[2023-04-28 12:40] VITALS: BP 134/66
== END 2023-04-28 12:49 | disposition home or self-care (01) ==
LOC: EN 10:23 → AC 10:24
PROVIDERS: PCP Family Medicine; Referring Provider Family Medicine; Visit Provider Internal Medicine Gastroenterology
PROC: 0DJD8ZZ Inspection of Lower Intestinal Tract, Via Natural or Artificial Opening Endoscopic (ICD-10-PCS; CPT 45378; principal; 2023-04-28 11:25)
DX: K63.5 Polyp of colon (principal); E11.9 Type 2 diabetes mellitus without complications; Z86.010 Personal history of colon polyps; K57.30 Diverticulosis of large intestine without perforation or abscess without bleeding; I10 Essential (primary) hypertension; Z90.710 Acquired absence of both cervix and uterus; F41.8 Other specified anxiety disorders; Z79.899 Other long term (current) drug therapy; Z79.84 Long term (current) use of oral hypoglycemic drugs
CPT/HCPCS: 45385; 82962; 88305; J7120; J3490